=== PATIENT | female | born 1985 | race Caucasian/White ===

== ENCOUNTER 2017-02-07 08:57 | Inpatient (IN) | payer MEDICAID, OTHER ==
[2017-02-07] MEDS ORDERED: Sodium Citrate/Citric Acid* 15 ML UDC PO ONE (11:00)
[2017-02-07] MEDS ORDERED: ceFAZolin 2 GM PREMIX (*) 2 GM/50 ML BAG IVPB ONE (11:00)
[2017-02-07] MEDS ORDERED: OXYTOCIN* 10 UNITS/ML 1 ML VIAL ONE ×3 (11:02→12:07)
[2017-02-07] MEDS ORDERED: Morphine PF AMP (0.5MG/ML)* 5 MG/10 ML AMP ONE (11:02)
[2017-02-07] MEDS ORDERED: EPHEDrine (Pressors)* 50 MG/ML VIAL ONE (11:47)
[2017-02-07] MEDS ORDERED: Ondansetron INJ* 2 MG/ML VIAL ONE (12:01)
[2017-02-07] MEDS ORDERED: Ketorolac INJ* 30 MG/ML 1 ML VIAL ONE (12:15)
[2017-02-07] MEDS ORDERED: Witch Hazel PAD* JAR TOPICAL PRN (12:32)
[2017-02-07] MEDS ORDERED: Acetaminophen TAB* 325 MG PO PRN (12:32)
[2017-02-07] MEDS ORDERED: Ibuprofen TAB* 600 MG PO PRN (12:32)
[2017-02-07] MEDS ORDERED: Glycerin ADULT SUPP PR PRN (12:32)
[2017-02-07] MEDS ORDERED: Dibucaine 1% 28.35 GM TUBE PR PRN (12:32)
[2017-02-07] MEDS ORDERED: HYDROcodone/ACETAMIN 5-325 MG* 1 TAB PO PRN (12:37)
[2017-02-07] MEDS ORDERED: Nalbuphine* 20 MG/ML 1 ML VIAL IV PRN ×2 (12:37)
[2017-02-07] MEDS ORDERED: DiMENhydriNATE IV* 50 MG/ML VIAL IV PUSH PRN ×2 (12:37→12:40)
[2017-02-07] MEDS ORDERED: Naloxone* 0.4 MG/ML 1 ML VIAL IV PRN (12:37)
[2017-02-07] MEDS ORDERED: Naloxone* 2 MG in NS 0.9% 250 ML* 250 ML IV PRN (12:37)
[2017-02-07] MEDS ORDERED: Ondansetron INJ* 2 MG/ML VIAL IV PRN ×2 (12:37→12:40)
[2017-02-07] MEDS ORDERED: Scopolamine 1.5 mg* PATCH TRANSDERM PRN (12:37)
[2017-02-07] MEDS ORDERED: Scopolamine PATCH Remove* 1 NOTE MISC PATCH OFF PRN (12:37)
[2017-02-07] MEDS ORDERED: HYDROmorphone INJ* 1 MG/ML CARPUJECT SYRINGE IV PRN (12:40)
[2017-02-07] MEDS ORDERED: fentaNYL* 50 MCG/ML 2 ML VIAL (100 MCG VIAL) IV PRN (12:40)
[2017-02-07] MEDS: diPHENhydraMINE IV* 50 MG/ML 1 ml VIAL (BENADRYL) IV PRN ×2 (13:13→18:45)
[2017-02-07] MEDS: Docusate CAP* 100 MG PO SCH ×2 (15:27→19:54)
[2017-02-07] MEDS: oxyCODONE TAB* 5 MG TAB PO PRN ×2 (16:34→19:53)
[2017-02-07] MEDS: Ketorolac INJ* 30 MG/ML 1 ML VIAL IV PRN (18:44)
[2017-02-07] MEDS: Simethicone TAB* 80 MG TAB.CHEW PO SCH ×2 (18:45→19:54)
[2017-02-08] MEDS: diPHENhydraMINE IV* 50 MG/ML 1 ml VIAL (BENADRYL) IV PRN (00:33)
[2017-02-08] MEDS: Ketorolac INJ* 30 MG/ML 1 ML VIAL IV PRN (03:55)
[2017-02-08 07:16] LABS: Hematocrit 25 % (35-47); Hemoglobin 8.2 g/dl (12.0-16.0); Mean Corpuscular HGB Conc 32 g/dl (31-36); Mean Corpuscular Hemoglobin 27 pg (27-31); Mean Corpuscular Volume 82 fL (80-97); Mean Platelet Volume 8 um3 (7.4-10.4); Red Blood Count 3.09 10^6/ul (4.0-5.4); Red Cell Distribution Width 15 % (10.5-15)
--- NOTE | 2017-02-08 07:36 | OP ---
OPERATIVE REPORT: DATE OF OPERATION: 02/07/17 DATE OF : 87 SURGEON: Kelly Alvarez MD. FUNERAL SERVICE APPRENTICE: Moe Marrufo CNM. PRE-OP DIAGNOSES: Intrauterine gestation at 39 weeks, prior section, declines trial of labo r after section. POST-OP DIAGNOSES: Intrauterine gestation at 39 weeks, prior section, declines trial of lab or after section. OPERATIVE PROCEDURE: Repeat low transverse section. ESTIMATED BLOOD LOSS: 600 mL. FLUID: Crystalloid. DRAINS: Jauregui catheter. FINDINGS: Normal appearing placenta, intact. Normal appearing ovaries, tubes, and uterus with 2 adina y small subserosal fibroids. Male infant, Apgars 9 and 9, weight 7 pounds 13 ounces. COUNTS: Correct. DESCRIPTION OF PROCEDURE: After informed consent was signed, the patient was taken to the operating room where she was given spinal anesthesia that was found to be adequate. She was prepped and draped in the dorsal supine position with a leftward tilt. A Pfannenstiel skin incision was made with a sc alpel and carried down to the underlying layer of fascia with the scalpel. The fascia was incised in either side of the midline and the fascial incision extended laterally with Jimenez scissors. The infe rior edge of the fascial incision was grasped with Zacarias clamps, tented up and dissected down with b sherrie dissection. The superior edge of the fascial incision was grasped with Zacarias clamps, tented up , and dissected down with a combination of sharp and blunt dissection. The rectus muscles were separ ated in the midline and the peritoneum was entered bluntly. The peritoneal incision was extended wit h a combination of sharp and blunt dissection. A bladder blade was inserted. A transverse incision was made in the lower uterine segment with the scalpel. The incision was extended superiorly and inf eriorly with blunt pressure. Difficulty was had in delivering the 's head with just fundal pre ssure, therefore Kiwi vacuum suction was applied to the infant's head and the head then delivered wit h fundal pressure and pressure from vacuum, followed by the shoulders and the rest of the body. The cord was milked towards the baby and after 30 seconds, it was clamped x2 and cut. The baby was vigor ous on delivery and was handed to the director merit system. Cord blood was collected. The placenta then de livered with gentle cord traction and fundal massage. The uterus was exteriorized and cleared of delaney ts and debris. The uterine incision was closed with 0 Vicryl in a running locked fashion with the se cond layer of suture imbricating the first. The abdomen was irrigated. The uterus was then placed b ack into the abdominal cavity. Good hemostasis was noted at the uterine incision. The peritoneum wa s then closed with 3-0 chromic in a running unlocked fashion. The fascia was closed with 0 Vicryl in a running unlocked fashion. Three interrupted sutures of 3-0 chromic were placed in the subcuticula r layer and the skin was closed with 4-0 Monocryl in a running subcuticular fashion. Incision was cl eaned. Mastisol and Steri-Strips were placed and a dressing was placed. The patient was then moved to the stretcher and taken to the recovery room in stable condition. [id number]/[facility] #: [id number]
[2017-02-08] MEDS: Docusate CAP* 100 MG PO SCH ×3 (08:29→20:15)
[2017-02-08] MEDS: Simethicone TAB* 80 MG TAB.CHEW PO SCH ×4 (08:30→20:15)
[2017-02-08] MEDS: Ferrous Gluconate TAB* 324 MG TAB PO SCH ×2 (08:30→20:15)
[2017-02-08] MEDS: oxyCODONE/Acetamin 5/325 MG* TAB PO PRN ×4 (09:37→21:40)
[2017-02-08] MEDS: Ibuprofen TAB* 600 MG PO PRN ×2 (11:41→18:40)
[2017-02-08] MEDS ORDERED: Zolpidem TAB* 5 MG PO PRN (21:00)
[2017-02-08 21:28] VITALS: BP 123/64
[2017-02-09] MEDS: Ibuprofen TAB* 600 MG PO PRN ×2 (02:30→08:48)
[2017-02-09] MEDS: oxyCODONE/Acetamin 5/325 MG* TAB PO PRN ×2 (02:33→06:50)
[2017-02-09] MEDS: Docusate CAP* 100 MG PO SCH (08:47)
[2017-02-09] MEDS: Simethicone TAB* 80 MG TAB.CHEW PO SCH (08:48)
[2017-02-09] MEDS: Ferrous Gluconate TAB* 324 MG TAB PO SCH (08:48)
== END 2017-02-09 14:30 | disposition home or self-care (01) | DRG 540 ==
LOC: MCHOB 08:57
PROVIDERS: ADMIT Obstetrics & Gynecology; ATTEND Obstetrics & Gynecology
PROC: 10D00Z1 Extraction of Products of Conception, Low, Open Approach (ICD-10-PCS; 2017-02-07)
PROC: 4A1HX4Z Monitoring of Products of Conception, Cardiac Electrical Activity, External Approach (ICD-10-PCS; principal; 2017-02-07 10:45)
DX: O34.211 Maternal care for low transverse scar from previous cesarean delivery (principal); D25.2 Subserosal leiomyoma of uterus; O34.13 Maternal care for benign tumor of corpus uteri, third trimester; Z91.040 Latex allergy status; Z88.8 Allergy status to other drugs, medicaments and biological substances; Z87.891 Personal history of nicotine dependence; Z3A.39 39 weeks gestation of pregnancy; Z37.0 Single live birth; O90.81 Anemia of the puerperium
CPT/HCPCS: 36415; 85025; 86850; 86900; 86901; A9270-GY; J0690; J1200; J1240; J1885; J2300; J2405; J2590